=== PATIENT | female | born 1960 | race Caucasian/White ===

== ENCOUNTER 2022-12-27 12:47 | Outpatient (REF) | payer MEDICAID, SELFPAY ==
[2022-12-27 14:56] LABS: Creatinine Urine 94.71 mg/dL; Microalbum/Creatinine Ratio Ur 10.5 ug/mg cr (<30)
[2022-12-27 15:07] LABS: Estimated Average Glucose 143 mg/dL; Hemoglobin A1c % 6.6 % (<6.0)
[2022-12-27 15:12] LABS: Alanine Aminotransferase 41 U/L (0-31); Albumin Level 4.5 g/dL (3.5-5.0); Alkaline Phosphatase 91 U/L (39-117); Anion Gap 16 (12-20); Aspartate Amino Transferase 32 U/L (5-31); Bilirubin Total 0.6 mg/dL (0.0-1.0); Blood Urea Nitrogen 26 mg/dL (9-16); Calcium 10.8 mg/dL (8.4-10.2); Carbon Dioxide 28 mmol/L (22-29); Chloride 100 mmol/L (96-108); Cholesterol 152 mg/dL (<200); Estimated Glomerular Filt Rate 52; Glucose Random 99 mg/dL (60-115); HDL Cholesterol 44 mg/dL (>40); LDL Cholesterol Calculated 75 mg/dL (<100); Potassium 3.5 mmol/L (3.3-5.1); Sodium 140 mmol/L (135-145); Total Protein 8.1 g/dL (6.5-8.0); Triglycerides 168 mg/dL (<150)
== END 2022-12-27 12:48 | disposition home or self-care (01) ==
LOC: HO.CHCLDS 12:47
PROVIDERS: Visit Provider Internal Medicine
DX: E11.9 Type 2 diabetes mellitus without complications (principal)
CPT/HCPCS: 36415; 80053; 80061; 82043; 82570; 83036

== ENCOUNTER 2023-08-14 08:49 | Outpatient (REF) | payer MEDICARE, SELFPAY ==
[2023-08-14 15:18] LABS: Alanine Aminotransferase 24 U/L (0-31); Albumin Level 4.3 g/dL (3.5-5.0); Alkaline Phosphatase 90 U/L (39-117); Anion Gap 14 (12-20); Aspartate Amino Transferase 24 U/L (5-31); Bilirubin Total 0.8 mg/dL (0.0-1.0); Blood Urea Nitrogen 18 mg/dL (9-16); Carbon Dioxide 29 mmol/L (22-29); Chloride 100 mmol/L (96-108); Cholesterol 174 mg/dL (<200); Estimated Glomerular Filt Rate 53; Glucose Random 142 mg/dL (60-115); HDL Cholesterol 49 mg/dL (>40); LDL Cholesterol Calculated 92 mg/dL (<100); Potassium 3.3 mmol/L (3.3-5.1); Sodium 140 mmol/L (135-145); Total Protein 7.6 g/dL (6.5-8.0); Triglycerides 169 mg/dL (<150)
[2023-08-14 15:26] LABS: Estimated Average Glucose 157 mg/dL; Hemoglobin A1c % 7.1 % (<6.0)
== END 2023-08-14 08:50 | disposition home or self-care (01) ==
LOC: HO.CHCLDS 08:49
PROVIDERS: Visit Provider Internal Medicine
DX: E11.9 Type 2 diabetes mellitus without complications (principal)
CPT/HCPCS: 36415; 80053; 80061; 83036

== ENCOUNTER 2024-01-10 09:32 | Outpatient (REF) | payer MEDICARE, SELFPAY ==
[2024-01-10 09:54] LABS: MANUAL DIFF FLAG NO
[2024-01-10 10:19] LABS: Basophils Percent Auto 0.5 % (0-2); Eosinophils Absolute Auto 0.1 X10*3/uL (0.0-0.4); Eosinophils Percent Auto 0.8 % (0-4); Hematocrit 47.1 % (37.0-47.0); Hemoglobin 16.1 g/dl (12.0-16.0); Imm Gran Abs Auto 0.02 X10*3/uL (0.00-0.03); Imm Gran Pct Auto 0.3 % (0.0-0.4); Lymphocytes Absolute Auto 2.1 X10*3/uL (1.2-4.9); Lymphocytes Percent Auto 27.6 % (20-40); Mean Corpuscular HGB Conc 34.2 g/dl (31.0-35.0); Mean Corpuscular Hemoglobin 30.4 pg (27.0-33.0); Mean Corpuscular Volume 88.9 fL (80.0-98.0); Mean Platelet Volume 10.9 fL (9.4-12.3); Monocytes Absolute Auto 0.5 X10*3/uL (0.1-1.2); Monocytes Percent Auto 6.4 % (2-11); Neutrophils Absolute Auto 4.9 x10*3/uL (2.0-8.3); Neutrophils Percent Auto 64.4 % (45-73); Platelet Count 307 X10*3/uL (160-400); Red Cell Distribution Width 13.8 % (11.0-16.0); White Blood Count 7.6 X10*3/uL (4.8-10.8)
[2024-01-10 10:47] LABS: Alanine Aminotransferase 41 U/L (0-31); Albumin Level 4.6 g/dL (3.5-5.0); Alkaline Phosphatase 90 U/L (39-117); Anion Gap 14 (12-20); Aspartate Amino Transferase 34 U/L (5-31); Bilirubin Total 0.9 mg/dL (0.0-1.0); Blood Urea Nitrogen 23 mg/dL (9-16); Calcium 10.5 mg/dL (8.4-10.2); Carbon Dioxide 31 mmol/L (22-29); Chloride 99 mmol/L (96-108); Cholesterol 152 mg/dL (<200); Estimated Glomerular Filt Rate 46; Glucose Random 143 mg/dL (60-115); HDL Cholesterol 48 mg/dL (>40); LDL Cholesterol Calculated 80 mg/dL (<100); Potassium 3.2 mmol/L (3.3-5.1); Sodium 141 mmol/L (135-145); Triglycerides 121 mg/dL (<150)
[2024-01-10 11:10] LABS: Creatinine Urine 183.27 mg/dL; Microalbum/Creatinine Ratio Ur 14.1 ug/mg cr (<30)
== END 2024-01-10 09:33 | disposition home or self-care (01) ==
LOC: HO.LAB 09:32
PROVIDERS: PCP Internal Medicine; Visit Provider Internal Medicine
DX: E11.9 Type 2 diabetes mellitus without complications (principal)
CPT/HCPCS: 36415; 80053; 80061; 82043; 82570; 85025

== ENCOUNTER 2024-06-26 08:37 | Outpatient (REF) | payer MEDICARE, SELFPAY ==
--- OUTSIDE RECORDS SUMMARY | 2024-06-26 08:40 | XMS_ITS | Encounter Summary ---
Author Organization [employer] Address [address] [facility] [address] [place] [address] Care Team Providers Care Getter Welder Name Role Phone Eric East MD Primary Care Prov ider Encounter Details Date Type Department Care Team (Late st Contact Info) Description 01/15/2024 Orders Only [facility] [address] [place] [address] ProviderBritton MD Social History Tobacco Use Types Packs/Day Years Used Date Smoking Tobacco: Never Passive Smoke Exposure: Never Smokeless Tobacco: Never Alcohol Use Standard Drinks/Week Comments Never 0 (1 standard drink = 0.6 oz pur e alcohol) Alcohol Answer Date Recorded Frequency of Alcohol Consumption Not on file 01/09/2024 Average Number of Drinks Not on file 024 Frequency of Binge Drinking Not on file 12/17 Score 0 01/09/2024 Depression Answer Date Recorded Patient Health Questionnaire-9 Score 0 01/09/2024 Patient Health Questionnaire-9 Score 0 01/09/2024 Last PHQ-9: Questionnaire Data Not on file 1 Housing Stability Answer Date Recorded What is your housing situation today? I have antony meeks 08/07/[address] you li ve. Do you have problems with any of the following? None of the above 08/07/2023 Food Insecurity Answer Date Recorded Within the past 12 months, y ou worried that your food would run out before you got money to buy more: Never True 08/07/2023 Within the past 12 months,th e food you bought just didn't last and you didn't have enough money to get more: Never True 05/ Transportation Answer Date Recorded In the past 12 months, has l ack of transportation kept you from medical appts, meetings, work or from getting things needed for daily living? No 08/07/2023 Utilities Answer Date Recorded In the past 12 months, has t he electric, gas, oil or water company threatened to shut off services in your home? No 08/07/2023 Depression Answer Date Recorded Patient Health Questionnaire-2 Score 0 01/09/2024 Comments Unknown Sex and Gender Information Value Date Recorded Sex Assigned at Female 01/15/2022 10:18 AM EDT Legal Sex Female 10:18 AM EDT Gender Identity Female 01/15/2022 10:18 AM EDT Sexual Orientation Straight 01/15/2022 10 :18 AM EDT documented as of this encounter Plan of Treatment Upcoming Encounters Date Type Department Care Team (Late st Contact Info) Description 08/20/2024 9:30 AM EDT Telemedicine [facility] [address] [place] [address] Eric East MD [address] [place] [address] documented as of this encounter Procedures Procedure Name Priority Date/Time Associated Diagnosis Comments HM MAMMOGRAPHY Routine 11/22/2023 3:37 PM EDT documented in this encounter Results * Hm Mammography (11/22/2023 3:37 PM EDT) Anatomical Region Laterality Modality Other Historical Provider HEALTH MAINTENANCE Final Result documented in this encounter Visit Diagnoses Not on filedocumented in this encounter Additional Health Concerns Assessment Noted Time PHQ-9 Depression Total Score: 0 01/09/20 24 10:49 AM EDT documented as of this encounter Care Teams Getter Welder Relationship Specialty Start Date End Date Eric East MD [address] [place] [address] PCP - General Internal Medicine 12/19/18 documented as of this encounter
--- OUTSIDE RECORDS SUMMARY | 2024-06-26 08:40 | XMS_ITS | Encounter Summary ---
Author Organization [email or web address] Address [address] 7[address] [place] [address] Care Team Providers Care Nursing Home Admissions Director Name Role Phone Eric East MD Primary Care Prov ider Encounter Details Date Type Department Care Team (Late st Contact Info) Description 07/02/2023 Orders Only [facility] MEDICINE [address] [place] [address] ProviderBritton MD Social History Tobacco Use Types Packs/Day Years Used Date Smoking Tobacco: Never Passive Smoke Exposure: Never Smokeless Tobacco: Never Alcohol Use Standard Drinks/Week Comments Never 0 (1 standard drink = 0.6 oz pur e alcohol) Depression Answer Date Recorded Patient Health Questionnaire-9 Score 0 06/11/2022 Housing Stability Answer Date Recorded What is your housing situation today? I have antony meeks 12/31/[address] you li ve. Do you have problems with any of the following? None of the above 12/31/2022 Food Insecurity Answer Date Recorded Within the past 12 months, y ou worried that your food would run out before you got money to buy more: Never True 12/31/2022 Within the past 12 months,th e food you bought just didn't last and you didn't have enough money to get more: Never True Transportation Answer Date Recorded In the past 12 months, has l ack of transportation kept you from medical appts, meetings, work or from getting things needed for daily living? No 12/31/2022 Utilities Answer Date Recorded In the past 12 months, has t he electric, gas, oil or water company threatened to shut off services in your home? No 12/31/2022 Depression Answer Date Recorded Patient Health Questionnaire-2 Score 0 06/11/2022 Comments Unknown Sex and Gender Information Value Date Recorded Sex Assigned at Female 01/15/2022 10:18 AM EDT Legal Sex Female 10:18 AM EDT Gender Identity Female 01/15/2022 10:18 AM EDT Sexual Orientation Straight 01/15/2022 10 :18 AM EDT documented as of this encounter Plan of Treatment Upcoming Encounters Date Type Department Care Team (Late st Contact Info) Description 08/20/2024 9:30 AM EDT Telemedicine [facility] MED & PEDS [address] [place] [address] Eric East MD [address] [place] [address] documented as of this encounter Procedures Procedure Name Priority Date/Time Associated Diagnosis Comments HM COLONOSCOPY Routine 11/26/2019 6:33 AM EDT documented in this encounter Results * Hm Colonoscopy (11/26/2019 6:33 AM EDT) Historical Provider HEALTH MAINTENANCE Final Result documented in this encounter Visit Diagnoses Not on filedocumented in this encounter Additional Health Concerns Assessment Noted Time PHQ-9 Depression Total Score: 0 06/12/19 23 3:16 PM EDT documented as of this encounter Care Teams Nursing Home Admissions Director Relationship Specialty Start Date End Date Eric East MD [address] [place] [address] PCP - General Internal Medicine 12/19/18 documented as of this encounter
--- OUTSIDE RECORDS SUMMARY | 2024-06-26 08:41 | XMS_ITS | Clinical Summary ---
Author Organization [employer] Address [address] [facility] [address] [place] [address] Care Team Providers Care Investigations Consultant Name Role Phone Eric East MD Primary Care Prov ider Allergies No known active allergies Medications FreeStyle lancets USE DIRECTED THREE TIMES DAILY 100 each 2 03/01/20 23 Active dapagliflozin (Farxiga) 10 MG Take 1 tablet (10 mg) by mouth Once per day. 90 tablet 3 08/07/19 24 025 Active losartan (Cozaar) 50 MG tabletIndications :Primary hypertension TAKE 1 TABLET(50 MG) BY MOUTH IN THE MORNING 90 tablet 1 01/31/20 24 Active atorvastatin (Lipitor) 40 MG tabletIndications :Mixed hyperlipidemia TAKE 1 TABLET BY MOUTH EVERY DAY 90 tablet 1 01/31/20 24 Active chlorthalidone (Hygroton) 50 MG tabletIndications :Primary hypertension TAKE 1 TABLET BY MOUTH EVERY DAY 90 tablet 1 04/29/19 25 Active omeprazole (PriLOSEC) [address] capsuleIndication s:Gastroesophagea l reflux disease without esophagitis TAKE 1 CAPSULE BY MOUTH EVERY DAY 30 MINUTES TO 1 HOUR BEFORE A MEAL 90 capsule 1 04/29/19 25 Active Dulaglutide 1.5 MG/0.5ML solution auto-injectorIndi cations:Type 2 diabetes mellitus without complication, without long-term current use of insulin (CMS/HCC) Inject 1.5 mg under the skin 1 (one) time per week. 3 mL 3 06/06/19 25 Active Dulaglutide 1.5 MG/0.5ML solution auto-injectorIndi cations:Type 2 diabetes mellitus without complication, without long-term current use of insulin (CMS/[facility]) Inject 1.5 mg under the skin 1 (one) time per week. 3 mL 3 01/09/20 24 025 Discontinued(R eorder (will not trigger notification to Pharmacy)) Active Problems Problem Noted Date Diagnosed Date Screening mammogram for breast cancer 05/16/2023 Assessment & Plan (05/16/2023 11:18 AM EST): Will order screening mammogram Screening for colon cancer 08/08/2022 Assessment & Plan (08/08/2022 10:13 AM EDT): Patient had it done on 2019, refers was told by GI it was good for 10 years, no record on chart Mixed hyperlipidemia 06/12/2022 Assessment & Plan (08/07/2023 2:31 PM EDT): Continue atorvastatin, new labs will be ordered Primary hypertension 06/12/2022 Assessment & Plan (05/20/2024 9:50 AM EST): Controlled, continue low sodium diet and exercise as tolerated, keep bp log, follow up in 3 months Assessment & Plan (01/09/2024 11:12 PM EDT): Controlled, continue los sodium diet and exercise as tolerated, keep bp log, follow up in 3 months Assessment & Plan (11/28/2023 1:23 PM EDT): Controlled, at home, reviewed usually below 130/80, continue low sodium diet and exercise as tolerated Assessment & Plan (08/07/2023 2:30 PM EDT): Controlled, on losartan and chlorthalidone, continue low sodium diet and exercise as tolerated Assessment & Plan (05/16/2023 11:21 AM EST): Controlled, continue losartan and chlorthalidone, no changes will be made, reinforced low sodium diet and exercise as tolerated Assessment & Plan (04/30/2023 11:47 PM EST): Controlled 129/75, no changes will be made, reinforced low sodium diet and exercisse as tolerated, follow up in 4 month Assessment & Plan (12/31/2022 8:06 PM EDT): Elevated at office, but she refers is related to stress/anxiety, this morning at home was 124/77, and upon review of home results they have been stable. Reinforced low sodium diet and exercise as toleraed Assessment & Plan (09/13/2022 9:49 AM EDT): Controlled on losartan 50mg and chlorthalidone last 5 days as follow 126/76-124/71-128/82-123/77-128/76, will leave current therapy, reinforced low sodium diet and exercise as tolerated Assessment & Plan (08/08/2022 10:05 AM EDT): Not at target, will increase losartan to 50mg daily, decrease sodium in diet and exercise as tolerated, bp target <130/80, will follow up in 1 month Assessment & Plan (06/12/2022 7:16 PM EDT): Controlled, on losartan 25mg and chlorthalidone, reinforced low sodium diet and exercise as tolerated, reviewed blood work results Type 2 diabetes mellitus wit hout complication, without long-term current use of insulin 06/12/2022 Assessment & Plan (05/20/2024 9:51 AM EST): No reported episode of hypoglycemia, continue low carb/no sugar diet, follow up in 3 months, Assessment & Plan (01/09/2024 11:13 PM EDT): Will increase trulicity to 1.5mg, continue jardiance, follow up in 3 months Assessment & Plan (11/28/2023 1:23 PM EDT): Not at target, will start trulicity for dm and cardiac protection Assessment & Plan (08/07/2023 2:31 PM EDT): On farxiga, no reported chest pain/shortness of breath, her glucose ranges from 88-137, no episode of hypoglycemia Assessment & Plan (05/16/2023 11:23 AM EST): Controlled, FBS as follow [phone], PM results as follow [phone], no reported episode of hypoglycemia, continue jardiance 25mg daily Eye exam done at [facility] on 10/2022 Assessment & Plan (04/30/2023 11:49 PM EST): Tolerated jardiance, will increase dse to 25mg, follow up in 4 months Assessment & Plan (12/31/2022 8:09 PM EDT): Not at target, she is taking metformin 500mg bid, will stop and will start jardiance for renal protection, will follow up in 1 month to evaluate tolerance Eye exam done on October per patient Assessment & Plan (08/08/2022 10:12 AM EDT): Controlled, last a1c <7/0%, no reported episode of hypoglycemia, will follow up in 3 months Eye exam schedule for october Assessment & Plan (06/12/2022 7:17 PM EDT): On metformin a1c from 06/07 6.7%, no chnages will be made, will repeat in 6 months, reviwed diet and exercise lifestyle changes Encounters Date Type Department Care Team Description 06/16/2024 10:20 AM EDT Office Visit [facility] OPT[facility] [address] [place] [address] 06/16/2024 Travel 06/05/2024 Refill [facility] MED & PEDS [address] [place] [address] Eric East MD Type 2 diabetes mellitus without complication, without long-term current use of insulin ([facility]) 06/05/2024 Telephone [facility] MED & PEDS [address] [place] [address] Eric East MD Med Refill 05/20/2024 9:30 AM EST Telemedicine [facility] MED & PEDS [address] [place] [address] Eric East MD Type 2 diabetes mellitus without complication, without long-term current use of insulin ([facility]) (Primary Dx); Primary hypertension 05/20/2024 Travel 05/19/2024 Telephone [facility] MED [facility] PEDS [address] [place] [address] Eric East MD chart prep 04/29/2024 Refill [facility] MED & PEDS [address] [place] [address] Eric East MD Primary hypertension; Gastroesophageal reflux disease without esophagitis 04/22/2024 Telephone [facility] MEDICINE [address] [place] [address] Eric East MD Prior Authorization from Last 3 Months Immunizations Name Administration Dates Next Due Influenza injectable quadrivalent preservative f ree 12/27/2022 Influenza, High Dose Seasonal, Preservative Free 11/28/2023 Social History Tobacco Use Types Packs/Day Years Used Date Smoking Tobacco: Never Passive Smoke Exposure: Never Smokeless Tobacco: Never Tobacco Cessation:Counseling Given: Not Answered Alcohol Use Standard Drinks/Week Comments Never 0 [...] Orientation Straight 01/15/2022 10 :18 AM EDT Last Filed Vital Signs Vital Sign Reading Time Taken Comments Blood Pressure 123/58 05/20/2024 9:20 AM EST Pulse 74 01/09/2024 10:47 AM EDT Temperature 36.6 ??C (97.8 ??F) 01/09/2024 10:47 AM E DT Respiratory Rate 20 01/09/2024 10:47 AM EDT Oxygen Saturation 98% 12/27/2022 11:36 AM EDT Inhaled Oxygen Concentration - - Weight 67.4 kg (148 lb 9.6 oz) 01/09/2024 10:47 AM EDT Height 157.5 cm (5' 2 ) 01/09/2024 10:47 AM EDT Body Mass Index 27.18 01/09/2024 10:47 AM EDT Plan of Treatment Upcoming Encounters Date Type Department Care Team (Late st Contact Info) Description 08/20/2024 9:30 AM EDT Telemedicine [facility] PEDS [address] [place] [address] Eric East MD [address] [place] [address] Health Maintenance Due Date Last Done Comments CT Colonography 1958 FIT DNA/Cologuard 1958 FIT 1958 FOBT 1960 Sigmoidoscopy 1960 Dental Oral Exam 05/18/2023 11/16/2022, 02/2019, 02/14/2012 Dental Prophylaxis 05/18/2023 11/16/2022, 02/27/2019 Eye Exam 11/15/2023 COVID-19 Vaccine ( season) 2023 12/18/2021, 03/03/2021, 07/25/2020, Additional history exists Dental X-Ray: Bitewings 11/18/2023 11/16/2022, 01/27 Diabetes: Hemoglobin A1C 02/27/2024 024, 08/14/2023, 12/27/2022, Additional history exists SDOH Screening 08/06/2024 08/07/2023 Mammogram 11/21/2024 11/22/2023, 06/16/2022 Alcohol/Substance Use Screening 01/08/2025 01/09/2024 Depression Screening 01/08/2025 01/09/2024, 01/09/20 Diabetes: Foot Exam 01/08/2025 01/09/2024, 01/09/2024, 01/09/2024, Additional history exists Tobacco Screening 01/08/2025 01/09/2024 Diabetes: Urine Protein Screening 01/09/2025 01/10/2024, 12/27/2022, 04/26/2021 Lipid Panel 01/09/2025 01/10/2024, 07/17, 12/27/2022, Additional history exists Dental X-Ray: Full Mouth 11/17/2025 11/16/2022, 01/16 DTaP/Tdap/Td Vaccines (3 - Td or Tdap) 04/16/2029 04/16/2019, 02/04/2014 Colonoscopy 11/25/2029 11/26/2019 Colorectal Cancer Screening 11/25/2029 RSV Patients and Patients Aged 60 years or older (1 - 1-dose 75+ series) 2033 Zoster Vaccines Completed 12/22/2018, 08/13/2018 Hepatitis C Screening Completed 06/05/2022, 022 Pneumococcal Vaccine: 50+ Years Completed 07/07/2022 Influenza Vaccine Completed 11/28/2023, , 12/18/2021, Additional history exists HIB Vaccines Aged Out No longer eligi ble based on patient's age to complete this topic HPV Vaccines Aged Out No longer eligi ble based on patient's age to complete this topic Hepatitis A Vaccines Aged Out No long er eligible based on patient's age to complete this topic Hepatitis B Vaccines Aged Out No long er eligible based on patient's age to complete this topic IPV Vaccines Aged Out No longer eligi ble based on patient's age to complete this topic Meningococcal Vaccine Aged Out No [facility] eligible based on patient's age to complete this topic RSV under 20 months Aged Out No longe r eligible based on patient's age to complete this topic Rotavirus Vaccines Aged Out No longer eligible based on patient's age to complete this topic Procedures Procedure Name Priority Date/Time Associated Diagnosis Comments LIPID PANEL, STANDARD Routine 01/10/2024 9:51 AM EDT Type 2 diabetes mellitus without complication, without long-term current use of insulin (CMS/HCC) ALBUMIN, RANDOM URINE W/CREATININE Routine 01/10/2024 9:43 AM EDT Type 2 diabetes mellitus without complication, without long-term current use of insulin (CMS/HCC) POCT GLYCATED HEMOGLOBIN, TOTAL Routine 11/28/2023 11:48 AM EDT Type 2 diabetes mellitus without complication, without long-term current use of insulin (CMS/HCC) HM MAMMOGRAPHY Routine 11/22/2023 3:37 PM EDT PROPHYLAXIS - ADULT Routine 11/16/2022 1 0:00 AM EDT INTRAORAL - COMPLETE SERIES OF RADIOGRAPHIC IMAGES Routine 11/16/2022 10:00 AM EDT PERIODIC ORAL EVALUATION - ESTABLISHED PATIENT Routine 11/16/2022 10:00 AM EDT HEPATITIS C AB W/REFL TO HCV RNA, QN, PCR Routine 06/05/2022 8:31 AM EDT Type 2 diabetes mellitus without complication, without long-term current use of insulin (CMS/HCC) HM COLONOSCOPY Routine 11/26/2019 6:33 AM EDT from Last 3 Months or Most Recently Relevant to Health Maintenance Results * Lipid Panel, Standard (01/10/2024 9:51 AM EDT) Triglycerides 121 <150 mg/dL [facility] Comment:Desirable Triglyceri de: less than 150 mg/dLBorderline High Triglyceride 150-199 mg/dLHigh Triglyceride: 200-499 mg/dLVery High Triglyceride: greater than or equal to 5OO mg/dL Cholesterol 152 <200 mg/dL [facility] Comment:Desirable Cholestero l: less than 200 mg/dLBorderline High Cholesterol: 200-239 mg/dLHigh Cholesterol: greater than 239 mg/dL LDL Cholesterol Calculated 80 <100 mg/dL [facility] Comment:Desirable LDL: less than 100 mg/dLNear Optimal/Above Optimal LDL: 110- 129 mg/dLBorderline High LDL: 130-159 mg/dLHigh LDL: 160-189 mg/dLVery High LDL: greater than or equal to 190 mg/dL HDL Cholesterol 48 >40 mg/dL [facility] Comment:Desirable HDL: great er than 40 mg/dL Note: This HDL assay may give artificially low results in patients with liver disease. Blood Venous blood specimen / Unknown 01/10/2024 9:51 AM EDT 01/10/2024 9:52 AM EDT us Eric Alvarez MD LAB BLOOD ORDERABL ES Final Result [facility] [address] [place] [phone] * Albumin, Random Urine W/Creatinine (01/10/2024 9:43 AM EDT) Creatinine, Urine 183.27 mg/dL [facility] Microalbumin Urine 26.0 mg/L [facility] Microalbum Creatinine Ratio Ur 14.1 <30 ug/mg cr [facility] Comment:Albumin/Creatinine R atio Reference Ranges: Normal: < 30 ug/mg creatinine Microalbuminuria: 30 - 300 ug/mg creatinineClinical Albuminuria: > 300 ug/mg creatinine Urine (Urine, Random) 01/10/2024 9:43 AM EDT 01/10/2024 10:18 AM EDT Eric Alvarez MD LAB URINE ORDERABL ES Final Result [facility] [address] [place] [address] [phone] * (ABNORMAL) POCT HGB A1C (11/28/2023 11:48 AM EDT) Hemoglobin A1C 7.7(A) 4.0 - 6.0 % QC Media Lot # [id number] Lot# Expiration Date [id number] Blood 11/28/2023 11:4 8 AM EDT Eric Alvarez MD POINT OF CARE TEST ENTER/EDIT ORDERABLES Final Result * Hm Mammography (11/22/2023 3:37 PM EDT) Anatomical Region Laterality Modality Other Britton Provider HEALTH MAINTENANCE Final Result * Hepatitis C Antibody with Reflex to HCV, RNA, Quantitative, Real-Time PCR (06/05/2022 8:31 AM EDT) Hepatitis C Antibody NON-REACT AIDE NON-REACT AIDE [facility] [employer] Index 0.07 <1.00 [facility] Comment: HCV antibody was non-reactive. There is no laboratory evidence of HCV infection. In most cases, no further action is required. However, if recent HCV exposure is suspected, a test for HCV RNA (test code 45504) is suggested. For additional information please refer to http://education.[employer]/faq/TVR05v8 (This link is being provided for informational/ educational purposes only.) Blood Venous blood specimen / Unknown 06/05/2022 8:31 AM EDT 06/05/2022 8:31 AM EDT Narrative [facility] - 06/09/2022 12:26 AM EDT FASTING:YES FASTING: YES Eric Alvarez MD LAB BLOOD ORDERABL ES Final Result [facility] [address], [place] [address] [facility] [address] [place] [phone] * Hm Colonoscopy (11/26/2019 6:33 AM EDT) Historical Provider HEALTH MAINTENANCE Final Result from Last 3 Months or Most Recently Relevant to Health Maintenance Insurance [facility] Care Teams Investigations Consultant Relationship Specialty Start Date End Date UribeEric Aiken MD [address] [place] [phone] PCP - General Internal Medicine 12/19/18
[2024-06-26 14:17] LABS: MANUAL DIFF FLAG NO
[2024-06-26 14:28] LABS: Basophils Percent Auto 0.5 % (0-2); Eosinophils Absolute Auto 0.1 X10*3/uL (0.0-0.4); Hematocrit 47.1 % (37.0-47.0); Hemoglobin 15.9 g/dl (12.0-16.0); Imm Gran Abs Auto 0.03 X10*3/uL (0.00-0.03); Imm Gran Pct Auto 0.4 % (0.0-0.4); Lymphocytes Absolute Auto 2.3 X10*3/uL (1.2-4.9); Lymphocytes Percent Auto 28.4 % (20-40); Mean Corpuscular HGB Conc 33.8 g/dl (31.0-35.0); Mean Corpuscular Hemoglobin 30.6 pg (27.0-33.0); Mean Corpuscular Volume 90.6 fL (80.0-98.0); Mean Platelet Volume 11.2 fL (9.4-12.3); Monocytes Absolute Auto 0.7 X10*3/uL (0.1-1.2); Monocytes Percent Auto 8.4 % (2-11); Neutrophils Percent Auto 61.3 % (45-73); Platelet Count 311 X10*3/uL (160-400); Red Cell Distribution Width 13.7 % (11.0-16.0); White Blood Count 8.1 X10*3/uL (4.8-10.8)
[2024-06-26 14:44] LABS: Estimated Average Glucose 134 mg/dL; Hemoglobin A1C 188.4406 umol/L; Hemoglobin A1c % 6.3 % (<6.0); Total Hemoglobin (HGBA1C) 4177.1635 umol/L
[2024-06-26 14:58] LABS: Alanine Aminotransferase 35 U/L (0-31); Albumin Level 4.4 g/dL (3.5-5.0); Alkaline Phosphatase 86 U/L (39-117); Anion Gap 13 (12-20); Aspartate Amino Transferase 38 U/L (5-31); Bilirubin Total 0.9 mg/dL (0.0-1.0); Blood Urea Nitrogen 21 mg/dL (9-16); Calcium 9.9 mg/dL (8.4-10.2); Carbon Dioxide 31 mmol/L (22-29); Chloride 101 mmol/L (96-108); Cholesterol 156 mg/dL (<200); Estimated Glomerular Filt Rate > 60; Glucose Random 81 mg/dL (60-115); HDL Cholesterol 51 mg/dL (>40); LDL Cholesterol Calculated 76 mg/dL (<100); Potassium 3.2 mmol/L (3.3-5.1); Sodium 142 mmol/L (135-145); Total Protein 7.8 g/dL (6.5-8.0); Triglycerides 147 mg/dL (<150)
== END 2024-06-26 08:38 | disposition home or self-care (01) ==
LOC: HO.CHCLDS 08:37
PROVIDERS: Visit Provider Internal Medicine
DX: E11.9 Type 2 diabetes mellitus without complications (principal)
CPT/HCPCS: 36415; 80053; 80061; 83036; 85025

== ENCOUNTER 2024-10-06 09:06 | Outpatient (REF) | payer MEDICARE, MEDICAID, SELFPAY ==
--- OUTSIDE RECORDS SUMMARY | 2024-10-06 09:38 | XMS_ITS | Encounter Summary ---
Author Organization [employer] Address [address] [facility] 7t [place] [address] Care Team Providers Care Accounts Receivable Analyst Name Role Phone Eric East MD Primary Care Prov ider Encounter Details Date Type Department Care Team (Late st Contact Info) Description 07/14/2024 Telephone [facility] OPTOMETRY [address] [place] [address] Martinez, Yanni, OD [address] [place] [address] Social History Tobacco Use Types Packs/Day Years [...] AM EDT documented as of this encounter Miscellaneous Notes * Telephone Encounter - Sarah Beth Alvarez - 07/14/2024 4:22 PM EDT Spoke with patient about of charges $163.69 that she had in [facility]. I inform herthat billing was going to charge this again to the insurance and worry about it and hopefully is going to be out of her account. documented in this encounter Plan of Treatment Upcoming Encounters Date Type Department Care Team (Late st Contact Info) Description 10/15/2024 8:00 AM EDT Office Visit [facility] [address] [place] [address] Leobardo Unger [address] [place] [address] 11/20/2024 11:15 AM EDT Telemedicine [facility] MED [facility] PEDS [address] [place] [address] Eric East MD [address] [place] [address] documented as of this encounter Visit Diagnoses Not on filedocumented in this encounter Additional Health Concerns Assessment Noted Time PHQ-9 Depression Total Score: 0 01/09/20 24 10:49 AM EDT documented as of this encounter Care Teams Accounts Receivable Analyst Relationship Specialty Start Date End Date Eric East MD [address] [place] [phone] PCP - General Internal Medicine 12/19/18 documented as of this encounter
[2024-10-06 11:50] LABS: Anion Gap 15 (12-20); Blood Urea Nitrogen 21 mg/dL (9-16); Calcium 10.1 mg/dL (8.4-10.2); Carbon Dioxide 30 mmol/L (22-29); Chloride 102 mmol/L (96-108); Estimated Glomerular Filt Rate 54; Potassium 3.8 mmol/L (3.3-5.1); Sodium 143 mmol/L (135-145); Uric Acid 6.1 mg/dL (2.4-5.7)
== END 2024-10-06 09:07 | disposition home or self-care (01) ==
LOC: HO.HHCL 09:06
PROVIDERS: PCP Internal Medicine; Visit Provider Emergency Medicine
DX: M10.271 Drug-induced gout, right ankle and foot (principal)
CPT/HCPCS: 36415; 80048; 84550

== ENCOUNTER 2025-02-09 09:36 | Outpatient (REF) | payer MEDICARE, MEDICAID, SELFPAY ==
--- OUTSIDE RECORDS SUMMARY | 2025-02-09 11:08 | XMS_ITS | Encounter Summary ---
Author Organization [employer] Address [address] [facility] [address] [place] [address] Care Team Providers Care Manager Lighting Name Role Phone Eric East MD Primary Care Prov ider Encounter Details Date Type Department Care Team (Late st Contact Info) Description 01/28/2025 Orders Only [facility] PEDS [address] [place], [place] [id number] ProviderBritton MD Social History Tobacco Use Types [...] Date Recorded Patient Health Questionnaire-9 Score 0 01/20/2025 Patient Health Questionnaire-9 Score 0 01/20/2025 Last PHQ-9: Questionnaire Data Not on file 1 03/22/2024 Housing Stability Answer Date Recorded What is your housing situation today? I have antony meeks 08/20/[address] you li ve. Do you have problems with any of the following? None of the above 08/20/2024 Food Insecurity Answer Date Recorded Within the past 12 months, y ou worried that your food would run out before you got money to buy more: Never True 08/20/2024 Within the past 12 months,th e food you bought just didn't last and you didn't have enough money to get more: Never True 07/2024 Transportation Answer Date Recorded In the past 12 months, has l ack of transportation kept you from medical appts, meetings, work or from getting things needed for daily living? No 08/20/2024 Utilities Answer Date Recorded In the past 12 months, has t he electric, gas, oil or water company threatened to shut off services in your home? No 08/20/2024 Depression Answer Date Recorded Patient Health Questionnaire-2 Score 0 01/20/2025 Internet Access Answer Date Recorded Internet Access Q1 Yes 08/20/2024 Internet Access Q2 Not on file 08/20/2024 Comments Unknown Sex and Gender Information Value Date Recorded Sex Assigned at Female 01/15/2022 10:18 AM EDT Legal Sex Female 10:18 AM EDT Gender Identity Female 01/15/2022 10:18 AM EDT Sexual Orientation Straight 01/15/2022 10 :18 AM EDT documented as of this encounter Plan of Treatment Upcoming Encounters Date Type Department Care Team ([facility] st Contact Info) Description 03/22/2025 9:30 AM EST Office Visit [facility] ADULT DENTAL [address] [place] [address] Sukhwinder Silva documented as of this encounter Procedures Procedure Name Priority Date/Time Associated Diagnosis Comments DIABETES EYE EXAM Routine 11/20/2024 documented in this encounter Results * Diabetes Eye Exam (11/20/2024) us Historical Provider HEALTH MAINTENANCE Final Result documented in this encounter Visit Diagnoses Not on filedocumented in this encounter Additional Health Concerns Assessment Noted Time PHQ-9 Depression Total Score: 0 01/21/20 25 10:47 AM EST documented as of this encounter Care Teams Manager Lighting Relationship Specialty Start Date End Date Eric East MD [address] [place] [address] PCP - General Internal Medicine 12/19/18 documented as of this encounter
--- OUTSIDE RECORDS SUMMARY | 2025-02-09 11:08 | XMS_ITS | Clinical Summary ---
Author Organization [employer] [facility] ity Address [address] [place] [address] Care Team Providers Care Bag Machine Tender Name Role Phone RossanaNoelle Boles DO Primary Care Pro vider Medical History Medical History Date Comments Dyslipidemia DX:Dyslipidemia Family History Medical History Relation Name Comments Diabetes Father asthma Dementia Mother Breast cancer Mother's side 1 aunt Breast cancer Mother's side 2 aunt Pancreatic cancer Mother's side 3 aunt Pancreatic cancer Mother's side 4 aunt Relation Name Status Comments Father Mother Mother's side 1 Mother's side 2 Mother's side 3 Mother's side 4 Social History Tobacco Use Types Packs/Day Years Used Date Smoking Tobacco: Never Smokeless Tobacco: Never Alcohol Use Standard Drinks/Week Comments Not Asked 0 (1 standard drink = 0.6 oz pur e alcohol) Comments Unknown Sex and Gender Information Value Date Recorded Sex Assigned at Not on file Legal Sex Female 7:34 PM EST Gender Identity Not on file Sexual Orientation Not on file Obstetrics History Plan of Treatment Upcoming Encounters Date Type Department Care Team (Late st Contact Info) Description 02/18/2025 9:30 AM EST Appointment [facility] [address] [phone] Health Maintenance Due Date Last Done Comments Colorectal Cancer Screening: Colonoscopy 1960 Pneumococcal Vaccine: 50+ Years (1 of 1 - PCV) 2008 Zoster Vaccines (1 of 2) 2008 Cholesterol Screening (Lipid Panel) 02/17/2022 Hepatitis C Screening 02/17/2022 Medicare Annual Wellness Visit 02/17/2022 Osteoporosis Screening (Bone Density Screening) 02/17/2022 Social Influencers of Health Screening 02/17/2022 Hypertension/CHF/CAD Annual BMP Blood Test 03/01/2022 Falls Risk Assessment 2023 DTaP,Tdap,and Td Vaccines (2 - Td or Tdap) 02/05/2024 02/04/2014 Depression Screening 03/18/2024 COVID-19 Vaccine (1 - 2024- season) 2024 Influenza Vaccine (#1) 2024 12/04/2016, 2013 Breast Cancer Screening 11/19/2025 11/20/19 24, 07/09/2022, 06/07/2021, Additional history exists RSV Immunization Adult Patients (1 - 1-dose 75+ series) 2033 HIB Vaccines Aged Out No longer eligi [...] on patient's age to complete this topic MMR Vaccines Aged Out No longer eligi ble based on patient's age to complete this topic Meningococcal ACWY Vaccine Aged Out N o longer eligible based on patient's age to complete this topic Meningococcal B Vaccine Aged Out No l onger eligible based on patient's age to complete this topic RSV Immunization Patients Under 20 months Aged Out No longer eligible based on patient's age to complete this topic Varicella Vaccines Aged Out No longer eligible based on patient's age to complete this topic Procedures Procedure Name Priority Date/Time Associated Diagnosis Comments [facility] SCREENING DIGITAL Routine 11/20/2023 2:50 PM EDT Encounter for screening mammogram for malignant neoplasm of breast from Last 3 Months or Most Recently Relevant to Health Maintenance Results * EVELYN SCREENING DIGITAL (11/20/2023 2:50 PM EDT) Anatomical Region Laterality Modality Mammography 11/20/2023 10:3 2 AM EDT Narrative 11/20/2023 2:50 PM EDT [facility] Diagnostic Imaging Department [address] [place] [id number] Patient: SRIDEVI NARANJO /Age/Sex: 1960 - 63 - F Unit#: [id number] Location/Status: SPDIMAM/REG CLI Mnemonic/Ordering Site: [facility] Ordering Physician: ERIC BEASLEY MD [facility] Screening Digital - 11/20/23 - 1059 Report Status:Signed EXAM: [facility] Screening Digital EXAM DATE AND TIME: 11/20/2023 11:00 AM HISTORY: Screening. 2 maternal aunts had breast carcinoma. COMPARISON: 07/07/22, 06/07/21, 05/06/20, 11/07/18 TECHNIQUE: Bilateral digital breast tomosynthesis was performed in the CC and MLO projections. Computer aided detection with Testlio 3D 3.1 was employed. TISSUE DENSITY: b. There are scattered areas of fibroglandular density. FINDINGS: An approximately 2 cm asymmetry is seen in the lateral left breast, CC view is only, possibly summation artifact. CC spot compression tomosynthesis views are recommended for further assessment. Few benign-appearing microcalcifications are scattered bilaterally, unchanged. No grouped microcalcifications are identified. The skin and vascularity are unremarkable. IMPRESSION: 1. Left breast asymmetry, for which additional views are recommended. The patient will be called back. 2. Stable mammographic appearance of the right breast. No evidence of malignancy is seen. BI-RADS: Category 0: Incomplete - Need Additional Imaging Evaluation RECOMMENDATION(S): 1: Special mammographic view(s) needed LEFT Dictating Physician: RINA BRITO MD Electronically Signed by: RINA BRITO MD Dic Date/Time: 11/20/23 1448 Sign date/Time: 11/20/23 1450 Procedure Note Rina Brito MD - 01/01/2024 [facility] Diagnostic Imaging Department [address] [place] [id number] Patient: SRIDEVI NARANJO /Age/Sex: 1960 - 63 - F Unit#: [id number] Location/Status: [facility] CLI Mnemonic/Ordering Site: [facility] Ordering Physician: ERIC BEASLEY MD [facility] Screening Digital - 11/20/23 - 1059 Report Status:Signed EXAM: [facility] Screening Digital EXAM DATE AND TIME: 11/20/2023 11:00 AM HISTORY: Screening. 2 maternal aunts had breast carcinoma. COMPARISON: 07/07/22, 06/07/21, 05/06/20, 11/07/18 TECHNIQUE: Bilateral digital breast tomosynthesis was performed in the CCand MLO projections. Computer aided detection with Testlio 3D 3.1was employed. TISSUE DENSITY: b. There are scattered areas of fibroglandular density. FINDINGS: An approximately 2 cm asymmetry is seen in the lateral left breast, CCview is only, possibly summation artifact. CC spot compression tomosynthesis viewsare recommended for further assessment. Few benign-appearing microcalcifications are scattered bilaterally,unchanged. No grouped microcalcifications are identified. The skin and vascularityare unremarkable. IMPRESSION: 1. Left breast asymmetry, for which additional views are recommended.The patient will be called back. 2. Stable mammographic appearance of the right breast. No evidence of malignancy is seen. BI-RADS: Category 0: Incomplete - Need Additional Imaging Evaluation RECOMMENDATION(S): 1: Special mammographic view(s) needed LEFT Dictating Physician: RINA BRITO MD Electronically Signed by: RINA BRITO MD Dic Date/Time: 11/20/23 1448 Sign date/Time: 11/20/23 1450 us Eric Alvarez IMG BI PROCEDURES Fin al Result from Last 3 Months or Most Recently Relevant to Health Maintenance Insurance [address] [place] [address] MEDICARE MEDICAID - [place] Care Teams Bag Machine Tender Relationship Specialty Start Date End Date Noelle Rutledge DO PCP - General Internal Medicine 12/11/13
--- OUTSIDE RECORDS SUMMARY | 2025-02-09 11:08 | XMS_ITS | Encounter Summary ---
Author Organization [employer] Address [address] [facility] [address] [place] [address] Care Team Providers Care Wreath And Garland Maker Hand Name Role Phone Eric East MD Primary Care Prov ider Encounter Details Date Type Department Care Team (Late st Contact Info) Description 01/15/2024 Orders Only [facility] [address] [place] [address] ProviderBritton MD Social History Tobacco Use Types [...] Care Team (Late st Contact Info) Description 03/22/2025 9:30 AM EST Office Visit [facility] ADULT DENTAL [address] [place] [address] Sukhwinder Silva documented as of this encounter Procedures Procedure Name Priority Date/Time Associated Diagnosis Comments HM MAMMOGRAPHY Routine 11/22/2023 3:37 PM EDT documented in this encounter Results * Hm Mammography (11/22/2023 3:37 PM EDT) Anatomical Region Laterality Modality Other us Historical Provider HEALTH MAINTENANCE Final Result documented in this encounter Visit Diagnoses Not on filedocumented in this encounter Additional Health Concerns Assessment Noted Time PHQ-9 Depression Total Score: 0 01/09/20 10:49 AM EDT documented as of this encounter Care Teams Wreath And Garland Maker Hand Relationship Specialty Start Date End Date Eric East MD [address] [place] [address] PCP - General Internal Medicine 12/19/18 documented as of this encounter
--- OUTSIDE RECORDS SUMMARY | 2025-02-09 11:08 | XMS_ITS | Encounter Summary ---
Author Organization [employer] Address [address] [facility] [address] [place] [address] Care Team Providers Care Wastewater Project Manager Name Role Phone Eric East MD Primary Care Prov ider Encounter Details Date Type Department Care Team (Late st Contact Info) Description 07/02/2023 Orders Only [facility] [address] [place] [address] ProviderBritton MD Social History Tobacco Use Types [...] Description 03/22/2025 9:30 AM EST Office Visit [facility] ADULT DENTAL [address] [place] [address] Sukhwinder Silva documented as of this encounter Procedures Procedure Name Priority Date/Time Associated Diagnosis Comments HM COLONOSCOPY Routine 11/26/2019 6:33 AM EDT documented in this encounter Results * Hm Colonoscopy (11/26/2019 6:33 AM EDT) us Historical Provider HEALTH MAINTENANCE Final Result documented in this encounter Visit Diagnoses Not on filedocumented in this encounter Additional Health Concerns Assessment Noted Time PHQ-9 Depression Total Score: 0 06/12/19 23 3:16 PM EDT documented as of this encounter Care Teams Wastewater Project Manager Relationship Specialty Start Date End Date UribeEric Aiken MD [address] [place] [address] PCP - General Internal Medicine 12/19/18 documented as of this encounter
--- OUTSIDE RECORDS SUMMARY | 2025-02-09 11:08 | XMS_ITS | Encounter Summary ---
Author Organization [employer] Address [address] [facility] [address] [place] [address] Care Team Providers Care Corporate Strategy Intern Name Role Phone Eric East MD Primary Care Prov ider Encounter Details Date Type Department Care Team (Late st Contact Info) Description 07/14/2024 Telephone [facility] OPTOMETRY [address] [place] [address] Martinez, Yanni, OD [address] [place] [address] Social History Tobacco Use Types Packs/Day Years [...] of charges $163.69 that she had in [facility]. I inform herthat billing was going to charge this again to the insurance and worry about it and hopefully is going to be out of her account. documented in this encounter Plan of Treatment Upcoming Encounters Date Type Department Care Team (Late st Contact Info) Description 03/22/2025 9:30 AM EST Office Visit [facility] ADULT DENTAL [address] [place] [address] Sukhwinder Silva documented as of this encounter Visit Diagnoses Not on filedocumented in this encounter Additional Health Concerns Assessment Noted Time PHQ-9 Depression Total Score: 0 01/09/20 10:49 AM EDT documented as of this encounter Care Teams Corporate Strategy Intern Relationship Specialty Start Date End Date Eric East MD [address] [place] [address] PCP - General Internal Medicine 12/19/18 documented as of this encounter
--- OUTSIDE RECORDS SUMMARY | 2025-02-09 11:08 | XMS_ITS | Clinical Summary ---
Author Organization [employer] Address [address] [place] [address] [address] [place] [address] Care Team Providers Care Manager Of International Name Role Phone Eric East MD Primary Care Prov ider Allergies No known active allergies Medications Farxiga 10 MG TAKE 1 TABLET(10 MG) BY MOUTH DAILY 90 tablet 3 Active atorvastatin (Lipitor) 40 MG tabletIndications :Mixed hyperlipidemia TAKE 1 TABLET BY MOUTH EVERY DAY 90 tablet 3 025 Active FreeStyle lancets 1 each by Other route 2 times daily. 100 each 2 025 Active FreeStyle lancets 1 each by Other route 2 times daily. 100 each 12 025 2025 Active losartan (Cozaar) 100 MG tabletIndications :Primary hypertension Take 1 tablet (100 mg) by mouth Once per day. 90 tablet 3 025 2025 Active Dulaglutide (Trulicity) 1.5 MG/0.5ML solution auto-injectorIndi cations:Type 2 diabetes mellitus without complication, without long-term current use of insulin (HCC) Inject 1.5 mg under the skin 1 (one) time per week. 2 mL 3 025 Active omeprazole (PriLOSEC) [address] capsuleIndication s:Gastroesophagea l reflux disease without esophagitis TAKE 1 CAPSULE BY MOUTH EVERY DAY 30 MINUTES TO 1 HOUR BEFORE A MEAL 90 capsule 1 025 2024 Discontinued(T herapy completed) Trulicity 1.5 MG/0.5ML solution auto-injectorIndi cations:Type 2 diabetes mellitus without complication, without long-term current use of insulin (HCC) INJECT 1.5MG SUBCUTANEOUS ONCE WEEKLY 2 mL 3 025 2024 Discontinued(R colby (will not trigger notification to Pharmacy)) Active Problems Problem Noted Date Diagnosed Date Acute idiopathic gout of right foot 10/22/2024 Screening mammogram for breast cancer 05/16/2023 Assessment [...] ordered Primary hypertension 06/12/2022 Assessment & Plan (01/20/2025 11:00 AM EST): Slightly elevated on today evalaution, but refer has remained below 130/80, refers she just arrived from the gym, told to keep a low sodium diet and keep blood pressure log, call back if >130/80 Assessment & Plan (10/22/2024 10:12 AM EDT): Controlled, follow up in 3 months, keep low sodium diet and exercise as tolerated, Assessment & Plan (08/20/2024 10:10 AM EDT): Controlled, keep low sodium diet and exercise as tolerated, will decrease chlorthalidone in view of mild hypokalemia, keep bp log, target <130/80 Assessment & Plan (05/20/2024 9:50 AM EST): [...] use of insulin 06/12/2022 Assessment & Plan (01/20/2025 11:01 AM EST): Controlled last A1c <7.0% from 10/2024, will order new labs for evaluation, follow up in 3-4 months Eye exam done on 06/2024 Assessment & Plan (08/20/2024 10:11 AM EDT): Controlled, last A1c 6.3%, no changes will be made, keep low carb/no sugar diet, Eye exam done Assessment & Plan (05/20/2024 9:51 AM EST): [...] 11:23 AM EST): Controlled, FBS as follow [phone], PM results as follow [phone], no reported episode of hypoglycemia, continue jardiance 25mg daily Eye exam done [facility] on 10/2022 Assessment & Plan (04/30/2023 11:49 [...] Encounters Date Type Department Care Team Description 01/28/2025 Orders Only [facility] [address] [place] [address] ProviderBritton MD 01/20/2025 10:45 AM EST Telemedicine [facility] [address] [place] [address] Eric East MD Screening mammogram for breast cancer (Primary Dx); Type 2 diabetes mellitus without complication, without long-term current use of insulin (HCC); Primary hypertension 01/20/2025 Travel 01/19/2025 Telephone [facility] [address] [place] [address] Eric East MD chart prep 11/09/2024 Refill [facility] [address] [place] [address] Eric East MD Type 2 diabetes mellitus without complication, without long-term current use of insulin ([facility]/HCC) from Last 3 Months Immunizations Immunization Administration Dates Next Due Influenza injectable quadrivalent [...] Sign Reading Time Taken Comments Blood Pressure 152/83 01/20/2025 10:47 AM EST Pulse 70 10/22/2024 9:28 AM EDT Temperature 36.7 C (98.1 F) 10/22/2024 9:28 AM EDT Respiratory Rate 14 10/22/2024 9:28 AM EDT Oxygen Saturation 99% 10/22/2024 9:28 AM EDT Inhaled Oxygen Concentration - - Weight 69.9 kg (154 lb) 10/22/2024 9:28 AM EDT Height 157.5 cm (5' 2 ) 10/22/2024 9:28 AM EDT Body Mass Index 28.17 10/22/2024 9:28 AM EDT Plan of Treatment Upcoming Encounters Date Type Department Care Team (Late st Contact Info) Description 03/22/2025 9:30 AM EST Office Visit [facility] [address] [place] [address] Sukhwinder Silva Health Maintenance Due Date Last Done Comments CT Colonography 1958 FIT DNA/Cologuard 1958 FIT 1958 FOBT 1960 Sigmoidoscopy 1960 COVID-19 Vaccine ( season) 2024 12/18/2021, 03/03/2021, 07/25/2020, Additional history exists Influenza Vaccine (#1) 2024 , 12/27/2022, 12/18/2021, Additional history exists Mammogram 11/21/2024 11/22/2023, 06/16/2022 Diabetes: Foot Exam 01/08/2025 01/09/2024, 01/09/2024, 01/09/2024, Additional history exists Diabetes: Urine Protein Screening 01/09/2025 01/10/2024, 12/27/2022, 04/26/2021 Dental Prophylaxis 03/12/2025 09/09/2024, 0 11/16/2022, 02/27/2019 Dental Oral Exam 04/18/2025 10/15/2024, 03/2022, 01/27/2019, Additional history exists Diabetes: Hemoglobin A1C 04/24/2025 025, 06/26/2024, 11/28/2023, Additional history exists Lipid Panel 06/26/2025 06/26/2024, 12/17, 08/14/2023, Additional history exists SDOH Screening 08/20/2025 08/20/2024 Dental X-Ray: Bitewings 09/10/2025 09/10/19 25, 11/16/2022, 01/27/2019 Tobacco Screening 10/15/2025 10/15/2024 Dental X-Ray: Full Mouth 11/17/2025 11/16/2022, 01/16 Eye Exam 11/20/2025 11/20/2024 Alcohol/Substance Use Screening 01/20/2026 01/20/2025 Depression Screening 01/20/2026 01/20/2025, 01/21/20 DTaP/Tdap/Td Vaccines (3 - Td or Tdap) 04/16/2029 04/16/2019, 02/04/2014 Colonoscopy 11/25/2029 11/26/2019 Colorectal Cancer Screening 11/25/2029 RSV Patients and Patients Aged 60 years or older (1 - 1-dose 75+ series) 2033 Zoster Vaccines Completed 12/22/2018, 08/13/2018 Hepatitis C Screening Completed 06/05/2022, 022 Pneumococcal Vaccine: 50+ Years Completed 07/07/2022 HIB Vaccines Aged Out No longer eligi [...] Name Priority Date/Time Associated Diagnosis Comments HM DIABETES EYE EXAM Routine 11/20/2024 POCT GLYCATED HEMOGLOBIN, TOTAL Routine 10/22/2024 9:30 AM EDT Type 2 diabetes mellitus without complication, without long-term current use of insulin ([facility]) PERIODIC ORAL EVALUATION - ESTABLISHED PATIENT Routine 10/15/2024 8:00 AM EDT Full PROPHYLAXIS - ADULT Routine 09/09/2024 10:00 AM EDT BITEWINGS - 4 RADIOGRAPHIC IMAGES Routine 09/09/2024 10:00 AM EDT LIPID PANEL, STANDARD Routine 06/26/2024 8:39 AM EDT Type 2 diabetes mellitus without complication, without long-term current use of insulin (CMS/HCC) ALBUMIN, RANDOM URINE W/CREATININE Routine 01/10/2024 9:43 AM EDT Type 2 diabetes mellitus without complication, without long-term current use of insulin (CMS/HCC) HM MAMMOGRAPHY Routine 11/22/2023 3:37 PM EDT INTRAORAL - COMPLETE SERIES OF RADIOGRAPHIC IMAGES Routine 11/16/2022 10:00 AM EDT HEPATITIS C AB W/REFL TO HCV RNA, QN, PCR Routine 06/05/2022 8:31 AM EDT Type 2 diabetes mellitus without complication, without long-term current use of insulin (CMS/HCC) COLONOSCOPY Routine 11/26/2019 6:33 AM EDT from Last 3 Months or Most Recently Relevant to Health Maintenance Results * Diabetes Eye Exam (11/20/2024) [facility] Provider HEALTH MAINTENANCE Final Result * (ABNORMAL) POCT A1c (10/22/2024 9:30 AM EDT) Hemoglobin A1C 6.2(A) 4.0 - 5.7 % QC Media Lot # Comment:[id number] Lot# Expiration Date Comment:05/26/2026 Blood 10/22/2024 9:30 AM EDT Eric Alvarez MD POINT OF CARE TEST ENTER/EDIT ORDERABLES Final Result * Lipid Panel, Standard (06/26/2024 8:39 AM EDT) Triglycerides 147 <150 mg/dL [facility] Comment:Desirable Triglyceri de: less than 150 mg/dLBorderline High Triglyceride 150-199 mg/dLHigh Triglyceride: 200-499 mg/dLVery High Triglyceride: greater than or equal to 5OO mg/dL Cholesterol 156 <200 mg/dL [facility] Comment:Desirable Cholestero l: less than 200 mg/dLBorderline High Cholesterol: 200-239 mg/dLHigh Cholesterol: greater than 239 mg/dL LDL Cholesterol Calculated 76 <100 mg/dL [facility] Comment:Desirable LDL: less than 100 mg/dLNear Optimal/Above Optimal LDL: 110- 129 mg/dLBorderline High LDL: 130-159 mg/dLHigh LDL: 160-189 mg/dLVery High LDL: greater than or equal to 190 mg/dL HDL Cholesterol 51 >40 mg/dL [facility] Comment:Desirable HDL: great er than 40 mg/dL Note: This HDL assay may give artificially low results in patients with liver disease. Blood Venous blood specimen / Unknown 06/26/2024 8:39 AM EDT 06/26/2024 2:14 PM EDT us Eric Alvarez MD LAB BLOOD ORDERABL ES Final Result Performing Organization Address City/[facility] Co de Phone Number [facility] [address] [place] [phone] * Albumin, Random Urine W/Creatinine (01/10/2024 9:43 AM EDT) Creatinine, Urine 183.27 mg/dL [facility] Microalbumin Urine 26.0 mg/L [facility] Microalbum Creatinine Ratio Ur 14.1 <30 ug/mg cr [facility] Comment:Albumin/Creatinine R atio Reference Ranges: Normal: < 30 ug/mg creatinine Microalbuminuria: 30 - 300 ug/mg creatinineClinical Albuminuria: > 300 ug/mg creatinine Urine (Urine, Random) 01/10/2024 9:43 AM EDT 01/10/2024 10:18 AM EDT Eric Alvarez MD LAB URINE ORDERABL ES Final Result Performing Organization Address City/[facility] Co de Phone Number [facility] [address] [place] [phone] * Hm Mammography (11/22/2023 3:37 PM EDT) Anatomical Region Laterality Modality Other Historical Provider HEALTH MAINTENANCE Final Result * Hepatitis C Antibody with Reflex to HCV, RNA, Quantitative, Real-Time PCR (06/05/2022 8:31 AM EDT) Hepatitis C Antibody NON-REACT AIDE NON-REACT AIDE [employer] [place] [facility] Index 0.07 <1.00 [employer] [place] [facility] Comment: HCV antibody was non-reactive. There is no laboratory evidence of HCV infection. In most cases, no further action is required. However, if recent HCV exposure is suspected, a test for HCV RNA (test code 13787) is suggested. For additional information please refer to http://education.[employer]/faq/PAP62x1 (This link is being provided for informational/ educational purposes only.) Blood Venous blood specimen / Unknown 06/05/2022 8:31 AM EDT 06/05/2022 8:31 AM EDT Narrative [facility] - 06/09/2022 12:26 AM EDT FASTING:YES FASTING: YES Eric Alvarez MD LAB BLOOD ORDERABL ES Final Result [facility] [address], [place] [phone] [employer] [place] [facility] [address] [place] [address] * Hm Colonoscopy (11/26/2019 6:33 AM EDT) Britton Cruz MD HEALTH MAINTENANCE Final Result from Last 3 Months or Most Recently Relevant to Health Maintenance Insurance [place]IC[place] [facility] ST[facility] AD[facility] Care Teams Manager Of International Relationship Specialty Start Date End Date UribeEric Aiken MD [address] [place] [phone] PCP - General Internal Medicine 12/19/18
[2025-02-09 14:44] LABS: Alanine Aminotransferase 24 U/L (0-31); Albumin Level 4.7 g/dL (3.5-5.0); Alkaline Phosphatase 104 U/L (39-117); Anion Gap 11 (12-20); Aspartate Amino Transferase 29 U/L (5-31); Blood Urea Nitrogen 15 mg/dL (9-16); Calcium 10.1 mg/dL (8.4-10.2); Carbon Dioxide 28 mmol/L (22-29); Chloride 107 mmol/L (96-108); Cholesterol 184 mg/dL (<200); Estimated Glomerular Filt Rate 55; HDL Cholesterol 51 mg/dL (>40); Potassium 4.2 mmol/L (3.3-5.1); Sodium 142 mmol/L (135-145); Total Protein 7.4 g/dL (6.5-8.0); Triglycerides 159 mg/dL (<150)
[2025-02-09 15:03] LABS: Microalbum/Creatinine Ratio Ur 33.3 ug/mg cr (<30)
== END 2025-02-09 09:37 | disposition home or self-care (01) ==
LOC: HO.CHCLDS 09:36
PROVIDERS: Visit Provider Internal Medicine
DX: E11.9 Type 2 diabetes mellitus without complications (principal)
CPT/HCPCS: 36415; 80053; 80061; 82043; 82570